=== PATIENT | male | born 1960 | race African-American/Black ===

== ENCOUNTER 2023-02-27 15:57 | Outpatient (CLI) | payer MEDICARE, OTHER, SELFPAY ==
[2023-02-27 18:37] LABS: Basophils Absolute Auto 0.1 K/mm3 (0.0-0.1); Basophils Percent Auto 0.9 % (0.2-1.2); Eosinophils Absolute Auto 0.2 K/mm3 (0-0.3); Eosinophils Percent Auto 3.9 % (0-4.4); Hematocrit 42.7 % (42.0-52.0); Hemoglobin 14.6 g/dL (14.0-18.0); Immature Granulocyte Absolute 0.01 K/mm3 (0.00-0.031); Immature Granulocyte Percent A 0.2 % (0-0.5); Lymphocytes Absolute Auto 2.69 K/mm3 (0.9-3.2); Lymphocytes Percent Auto 50.1 % (18.3-44.2); Mean Corpuscular HGB Conc 34.2 g/dl (32-36); Mean Corpuscular Hemoglobin 32.3 pg (26-34); Mean Corpuscular Volume 94.5 fl (80-100); Mean Platelet Volume 11.9 fl (7.4-10.4); Monocytes Absolute Auto 0.5 K/mm3 (0.1-0.6); Monocytes Percent Auto 8.8 % (2.6-8.5); Neutrophils Absolute Auto 1.9 K/mm3 (1.3-6.7); Neutrophils Percent Auto 36.1 % (45.5-73.1); Platelet Count Result 225 k/mm3 (150-375); Red Blood Count 4.52 M/mm3 (4.6-6.20); Red Cell Distribution Width 13.4 % (11.5-14.5); White Blood Count 5.4 K/mm3 (4.5-10.0)
[2023-02-27 18:46] LABS: Alanine Aminotransferase 27 U/L (6-50); Albumin Level 4.4 g/dL (3.5-5.1); Alkaline Phosphatase 81 U/L (38-126); Anion Gap 7 mmol/L (8-16); Aspartate Amino Transferase 41 U/L (17-59); Bilirubin,Total 0.7 mg/dL (0.2-1.3); Blood Urea Nitrogen 15 mg/dL (9-20); Calcium 9.2 mg/dL (8.4-10.2); Carbon Dioxide 25 mmol/L (22-30); Chloride 104 mmol/L (98-107); Cholesterol 188 mg/dL (0-200); Estimated Glomerular Filt Rate > 60; Glucose 129 mg/dL (65-110); HDL Direct 39 mg/dL; Potassium 3.6 mmol/L (3.4-5.0); Sodium 136 mmol/L (137-145); Triglycerides 134 mg/dL (<150)
[2023-02-27 19:10] LABS: Hemoglobin A1C 5.7 % (<5.7)
[2023-02-27 19:11] LABS: LDL Cholesterol Direct 107 mg/dL; Vitamin D 25 Hydroxy 51.3 ng/mL
[2023-02-27 19:17] LABS: Prostate Specific Antigen 4.4 ng/mL (< OR = 4.0)
== END 2023-02-27 15:58 | disposition home or self-care (01) ==
LOC: ANHGOSHLAB 16:05
DX: E78.2 Mixed hyperlipidemia (principal); G62.9 Polyneuropathy, unspecified; E55.9 Vitamin D deficiency, unspecified; Z79.899 Other long term (current) drug therapy
CPT/HCPCS: 36415; 80053; 80061; 82306; 82607; 83036; 84153; 85025

== ENCOUNTER 2023-03-06 08:52 | Outpatient (RCR) | payer MEDICARE, OTHER, SELFPAY ==
--- NOTE | 2023-03-06 09:46 | PTOPEVAL1 ---
Assessment and note entered by Lexa Baker, PT, DPT Evaluation Information Assessment Status Evaluation Diagnosis low back pain (M54.51) Subjective Information Pt states he has not had any back pain in the last 2 days. He states his pain in mostly on the R side, in the lower buttock region. He states his pain does not radiate down his leg at all and he currently is not having any limitations. He states he walks for miles a day. At its worst, last week , it was very painful to get out of bed. He states his pain has slowly gotten better over the last week. Reported Pain Level Pain Score 0: Self Report Assessment PT Clinical Summary Theron presents to therapy today for his initial evaluation with a diagnosis of low back pain. Today he demonstrates lumbar ROM and BLE strength that is pain free and WNL. He has increased tension with passive hip stretching in most directions. He reports no functional limitations at this time. He was instructed in a home stretching program to add as a cool down after his daily walk. He did not schedule any additional appointments at this time. He will follow up in the next 1-2 months if needed. Oswestry Back: , 2% disability Plan of Care PT Services Indicated Yes Treatment Frequency and follow up in 1 month Duration These treatments will address the objective and functional deficits as defined above. The patient will be advanced safely and appropriately in order for the patient to progress towards his/her prior level of function. Additional exercises will be introduced and as well as a comprehensive home exercise program upon discharge, if needed, ?to ensure carryover of functional gains achieved in the clinic. This treatment plan has been reviewed and agreement upon by the patient.
--- NOTE | 2023-04-16 08:21 | PTOPDC ---
Assessment and note entered by Lexa Baker, PT, DPT Evaluation Information Assessment Status Discharge - Pt Not Present Diagnosis low back pain (M54.51) Subjective Information Called pt to follow up. States he is doing well and he does not need to return to therapy. Assessment PT Clinical Summary Theron was evaluated on 03/06/23 and complete his HEP IND. He will be discharged at this time. Told if he need additional therapy later he will need a new order.
== END 2023-04-16 09:17 | disposition home or self-care (01) ==
LOC: ANHGOSHPT 08:52
DX: M54.51 Vertebrogenic low back pain (principal)
CPT/HCPCS: 97110; 97161

== ENCOUNTER 2024-09-13 10:42 | Outpatient (CLI) | payer MEDICARE, OTHER, SELFPAY ==
--- OUTSIDE RECORDS SUMMARY | 2024-09-13 10:59 | XMS_ITS | Clinical Summary ---
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 This disclosure is being madepursuant to the Care Everywhere program and may not contain all information available regarding this patient. Last updated [employer] [facility] Allergies No known active allergies Medications * Be aware that medications may not be up to date on this document. Alwaysverify current medications with the patient. No known medications Immunizations Immunization Administration Dates Next Due INFLUENZA VACCINE, QUADR. (F LUZONE; FLULAVAL; FLUARIX; AFLURIA QUADRIVALENT; 6MO+), 0.5 ML (IIV4) 03/17/2019 Social History Tobacco Use Types Packs/Day Years Used Date Smoking Tobacco: Never Smokeless Tobacco: Never Sex and Gender Information Value Date Recorded Sex Assigned at Not on file Legal Sex Male 1:59 PM [employer] Gender Identity Not on file Sexual Orientation Not on file Last Filed Vital Signs Vital Sign Reading Time Taken Comments Blood Pressure 130/82 04/19/2019 5:39 PM [employer] Pulse 71 04/19/2019 5:39 PM [employer] Temperature 36.6 C (97.9 F) 04/19/2019 5:39 PM [employer] Respiratory Rate 16 04/19/2019 5:39 PM [employer] Oxygen Saturation 97% 04/19/2019 5:39 PM [employer] Inhaled Oxygen Concentration - - Weight 94.8 kg (209 lb) 04/19/2019 5:39 PM [employer] Height 185.4 cm (6' 1 ) 04/19/2019 5:39 PM [employer] Body Mass Index 27.57 04/19/2019 5:39 PM [employer] Plan of Treatment Health Maintenance Due Date Last Done Comments COLOGUARD (AGES 45-75) - COL ON CA SCREENING 1958 COLON MONITORING 1958 COLONOSCOPY - COLON CA SCREENING 1958 CT COLONOGRAPHY - COLON CA SCREENING 1958 Colorectal Cancer Screening 1958 FIT - COLON CA SCREENING 1958 FLEX SIG - COLON CA SCREENING 1958 LIPID TESTING 1958 HEPATITIS C SCREENING 03/28/1976 DTAP/TDAP/TD VACCINES (1 - Tdap) 1977 PNEUMOCOCCAL VACCINE 50+ (1 of 1 - PCV) 2008 ZOSTER VACCINE (1 of 2) 2008 SCREENING FOR DIABETES 04/19/2019 COVID-19 VACCINE (1 - 2023-2 5 season) 2024 DEPRESSION SCREENING 05/04/2024 INFLUENZA VACCINE (Season Ended) 2025 03/17/2019, 03/04/2018, 02/15/2015 Respiratory Syncytial Virus (RSV) Vaccine Pt: or over 60 yrs (1 - 1-dose 75+ series) 2033 HEPATITIS B VACCINE Aged Out No longe r eligible based on patient's age to complete this topic HIB VACCINE Aged Out No longer eligi ble based on patient's age to complete this topic HPV VACCINE Aged Out No longer eligi ble based on patient's age to complete this topic MENINGOCOCCAL (Group B) VACCINE SHARED DECISION-MAKING Aged Out No longer eligible based on patient's age to complete this topic MENINGOCOCCAL GROUPS A/C/Y/W VACCINE Aged Out No longer eligible b ased on patient's age to complete this topic Insurance
--- OUTSIDE RECORDS SUMMARY | 2024-09-13 10:59 | XMS_ITS | Continuity of Care Document ---
Author Name [facility] Organization [facility] Care Team Providers Care It Consulting Director Name Role Phone [facility] Unavailable Unavailable Problems Combined list of problems from Department of Defense and Veterans Affairs facilities. It does not include entries that were removed or entered in error. Problem Status Onset Date Problem Type Date of Resolution Comments Source ACUTE BRONCHITIS Inactive Condition [facility] PRESBYOPIA Active Condition [facility] REFRACTIVE ERROR - HYPERMETROPIA Active Condition [facility] NORMAL ROUTINE OPHTHALMOLOGICAL EXAM Inactive Condition [facility] NEPHROLITHIASIS Active Condition [facility] visit for: administrative purpose Inactive Condition [facility] visit for: screening exam malignant neoplasm prostate Active Condition [facility] visit for: screening malignant neoplasm colon Active Condition [facility] Preventive Medicine Estab Patient Checkup Adult 40-64 Inactive Condition [facility] NORMAL ROUTINE HISTORY AND PHYSICAL ADULT (18-65) Active Condition [facility] ALLERGIC RHINITIS Active Condition [facility] NORMAL EXAMINATION Inactive Condition Do D Physical Examination Inactive Condition f/u 1 year/prn. [facility] Other Physical Therapy Inactive Condition [facility] KNEE SPRAIN Inactive Condition [facility] joint pain, localized in the knee Active Condition discussed decreased traumatic exercising (ie running); f/u 4-6 weeks no improvement/i ncreased sx's/prn. [facility] Bilateral knee pain Active Condition [facility] Colonic polyp Active Condition [facility] Depression Active Condition [facility] Erectile dysfunction Active Condition [facility] Hyperlipidemia Active Condition [facility] Low back pain Active Condition [facility] Migraine Active Condition [facility] Posttraumatic stress disorder Active Condition [facility] Prediabetes Active Condition [facility] Vitamin D deficiency Active Condition [facility] Diagnosis: ICD-10-CM F43.12 Post-traumatic stress disorder, chronic Active Diagnosis [facility] Diagnosis: ICD-10-CM R97.20 Elevated prostate specific antigen [PSA] Active Diagnosis [facility] Diagnosis: ICD-10-CM R97.21 Rising PSA fol treatment for malignant neoplasm of prostate Active Diagnosis [facility] Diagnosis: ICD-10-CM F33.1 Major depressive disorder, recurrent, moderate Active Diagnosis [facility] Medications Combined list of outpatient medications from Department of Defense and Veterans Affairs facilities.Medications provided include 1) outpatient medications from the last 15 months, and 2) patient-reported medications. Medication Details Route Status Patient Instructions Prescription Expires Prescription Number Last Dispense Date Ordering Provider Order Date Order Qty Source DULOXETINE HCL (duloxetine HCl), 30 MG, CAPSULE DR, ORAL, Nets[employer]ive, IncANTA PHARMA L, 1000 ea. BOTTLE Active [id number] 4 2023 90 Pharmac y Data Transac tion Service Facilit y EZETIMIBE (ezetimibe) , 10 MG, TABLET, ORAL, [employer]ARM, 500 ea. BOTTLE Active [id number] 4 2023 90 Pharmac y Data Transac tion Service Facilit y HYDROCODONE -ACETAMINOP HEN (HYDROCODON E/ACETAMINO PHEN), 5MG-325MG, TABLET, ORAL, MALLINCKROD T PH, 500 ea. BOTTLE Active [id number] 2023 12 Pharmac y Data Transac tion Service Facilit y Mirtazapine (Remeron Soltab) Tablet 30mg Oral TAKE ONE-HALF TABLET BY MOUTH AT BEDTIME FOR DEPRESSI ON 06/30/2024 [id number] LUZ SERRANO 2023 15 [facility] MIRTAZAPINE 30MG TAB TAKE ONE TABLET BY MOUTH AT BEDTIME FOR DEPRESSI ON ORAL DISCONT INUED (EDIT) 05/12/2025 [id number] 5 JACQUELIN SERRANO JR 2024 30 [facility] MIRTAZAPINE 30MG TAB TAKE ONE-HALF TABLET BY MOUTH AT BEDTIME FOR DEPRESSI ON ORAL DISCONT INUED (EDIT) 06/30/2024 [id number] JACQUELIN SERRANO JR 2023 15 [facility] MIRTAZAPINE 45MG TAB TAKE ONE TABLET BY MOUTH AT BEDTIME ORAL ACTIVE 09/01/2025 [id number] 5 JACQUELIN SERRANO JR 2024 30 [facility] PHENAZOPYRI DINE HCL (phenazopyr idine HCl), 100 MG, TABLET, ORAL, [employer], 100 ea. BOTTLE Active [id number] 4 2023 9 Pharmac y Data Transac tion Service Facilit y PREVNAR 20 (pneumococc al 20-valent conjugate vaccine (Diphtheria crm)/PF), 0.5 ML, SYRINGE, INTRAMUSC, WYETH/PFIZE R, .5 ml SYRINGE Cancele d [id number] : 2023 0 Pharmac y Data Transac tion Service Facilit y PREVNAR 20 (pneumococc al 20-valent conjugate vaccine (Diphtheria crm)/PF), 0.5 ML, SYRINGE, INTRAMUSC, WYETH/PFIZE R, .5 ml SYRINGE Cancele d [id number] : 2023 0 Pharmac y Data Transac tion Service Facilit y Rosuvastati n Calcium ([employer] [place]) 1000 TABLET, FILM COATED in 1 BOTTLE Active [id number] 07/15/19 2 4 2023 90 Pharmac y Data Transac tion Service Facilit y TAMSULOSIN HCL (TAMSULOSIN HCL), 0.4 MG, CAP.SR 24H, ORAL, ZYDUS PHARMACEU, 1000 ea. BOTTLE Active [id number] 4 2023 90 Pharmac y Data Transac tion Service Facilit y Allergies, Adverse Reactions, Alerts Combined list of allergies from Department of Defense and Veterans Affairs facilities. It does not include entries that were removed or entered in error. Substance Category Reaction Severity Reaction type Status Date Reported Comments Source No Known Allergies Drug allergy (disorder) active 02/22/2018 [facility] Nolan ARREDONDO ([facility]) Immunizations Combined list of available immunizations from the Department of Defense and Veterans Affairs facilities. Immunization Series Date Given Administered By Site Reaction Lot Number CVX Code Drug Cell Support Operator Status Comments Source Pneumococcal conjugate PCV20, polysaccharid e [id number] conjugate, adjuvant, PF 2023 () Not Given Pneumococ je conjugate PCV20, polysacch aride [id number] conjugate , adjuvant, PF DoD Pneumococcal conjugate PCV20, polysaccharid e [id number] conjugate, adjuvant, PF 2023 () Not Given Pneumococ je conjugate PCV20, polysacch aride [id number] conjugate , adjuvant, PF DoD COVID-19 (MODERNA), MRNA, LNP-S, PF, 50 MCG/0.5 ML (AGES 12+ YEARS) 1 2022 ZHAOARYAN RIGHT DELTO ID [id number] 312 complet ed [facility] INFLUENZA, INJECTABLE, QUADRIVALENT, PRESERVATIVE FREE 2022 ARYAN ZHAO LEFT DELTO ID [id number] 150 complet ed Completed Series, [facility] COVID-19 (MODERNA), MRNA, LNP-S, BIVALENT BOOSTER, PF, 50 MCG/0.5 ML OR 25MCG/0.25 ML DOSE 1 2022 ESMER APIPAH LEFT DELTO ID [id number] 229 complet ed [facility] ZOSTER RECOMBINANT 2 2022 ESMER APPIAH LEFT DELTO ID [id number] 187 complet ed [facility] COVID-19, mRNA, LNP-S, PF, 100 mcg or 50 mcg dose 2021 GIOVANNI Moderna US[employer] Inc[employer] (MOD) Not Given COVID-19, mRNA, LNP-S, PF, 100 mcg or 50 mcg dose DoD ZOSTER RECOMBINANT 1 2021 187 complet ed [facility] COVID-19, mRNA, LNP-S, PF, 100 mcg or 50 mcg dose 2020 TATI Moderna [employer] Inc[employer] (MOD) Not Given COVID-19, mRNA, LNP-S, PF, 100 mcg or 50 mcg dose DoD INFLUENZA, UNSPECIFIED FORMULATION 2020 88 complet ed [facility] COVID-19, mRNA, LNP-S, PF, 100 mcg or 50 mcg dose 2020 GIACALONE, Moderna [employer] Inc[employer] (MOD) Not Given COVID-19, mRNA, LNP-S, PF, 100 mcg or 50 mcg dose DoD COVID-19 (MODERNA), MRNA, LNP-S, PF, 100 MCG/0.5 ML DOSE 2 2020 207 complet ed [facility] COVID Vaccine Moderna 2020 207 complet ed COVID Vaccine Moderna 06/16/20 Given Ambulat ory Pharmac y COVID-19 (MODERNA), MRNA, LNP-S, PF, 100 MCG/0.5 ML DOSE 1 2020 207 complet ed [facility] INFLUENZA, INJECTABLE, QUADRIVALENT, PRESERVATIVE FREE 2020 150 complet ed [facility] INFLUENZA, UNSPECIFIED FORMULATION 2018 88 complet ed [facility] INFLUENZA, INJECTABLE, QUADRIVALENT, PRESERVATIVE FREE 2017 150 complet ed [facility] TDAP 2017 115 complet ed Left Deltoid [facility] influenza, seasonal, injectable 2010 TRANSCR IBED 141 sanofi pasteur complet ed influenza , seasonal, injectabl e 03/14/11 Given Ambulat ory Pharmac y tuberculin purified protein derivative 1998 [id number] 96 [facility] complet ed tuberculi n purified protein derivativ e 09/19/98 Given Ambulat ory Pharmac y typhoid vaccine, inactivated 1998 101 complet ed typhoid vaccine, inactivat ed 09/19/98 Given Ambulat ory Pharmac y hepatitis A adult vaccine 1998 52 complet ed hepatitis A adult vaccine 09/19/98 Given Ambulat ory Pharmac y tetanus-dipht h toxoids (Td) adult/adol 1998 09 complet ed tetanus-d iphth toxoids (Td) adult/ado l 09/19/98 Given Ambulat ory Pharmac y tetanus and diphtheria toxoids, adsorbed, preservative free, for adult use (2 Lf of tetanus toxoid and 2 Lf of diphtheria toxoid) 2 1998 Unknown, Provider 09 () complet ed tetanus and diphtheri a toxoids, adsorbed, preservat rolando free, for adult use (2 Lf of tetanus toxoid and 2 Lf of diphtheri a toxoid) DoD typhoid vaccine, parenteral, other than acetone-kille d, dried 1 1998 Unknown, Provider 41 () complet ed typhoid vaccine, parentera l, other than acetone-k illed, dried DoD hepatitis A vaccine, adult dosage 2 1998 Unknown, Provider 52 () complet ed hepatitis A vaccine, adult dosage DoD hepatitis A adult vaccine 1997 [id number] [employer] complet ed hepatitis A adult vaccine 03/21/98 Given Ambulat ory Pharmac y influenza virus vaccine, whole virus [id number] [facility] complet ed influenza virus vaccine, whole virus 03/21/98 Given Ambulat ory Pharmac y influenza virus vaccine, whole virus 1 1997 Unknown, [facility] [id number] influenza virus vaccine, whole virus DoD hepatitis A vaccine, adult dosage 1 1997 Unknown, Provider [id number] [employer]ck (MSD) complet ed hepatitis A vaccine, adult dosage DoD yellow fever vaccine 1990 37 complet ed yellow fever vaccine 10/02/90 Given Ambulat ory Pharmac y typhoid, parenteral, AKD 1990 53 complet ed typhoid, parentera l, AKD 10/02/90 Given Ambulat ory Pharmac y yellow fever vaccine 1 1990 Unknown, Provider 37 () complet ed yellow fever vaccine DoD typhoid vaccine, parenteral, acetone-kille d, dried (U.S. ) 1990 Unknown, Provider 53 () complet ed typhoid vaccine, parentera l, acetone-k illed, dried ([place].S. ) DoD tetanus-dipht h toxoids (Td) adult/adol 1988 09 complet ed tetanus-d iphth toxoids (Td) adult/ado l 11/01/88 Given Ambulat ory Pharmac y tetanus and diphtheria toxoids, adsorbed, preservative free, for adult use (2 Lf of tetanus toxoid and 2 Lf of diphtheria toxoid) 1 1988 Unknown, Provider 09 () complet ed tetanus and diphtheri a toxoids, adsorbed, preservat rolando free, for adult use (2 Lf of tetanus toxoid and 2 Lf of diphtheri a toxoid) [facility] vaccinia (smallpox) vaccine 1983 75 complet ed vaccinia (smallpox ) vaccine 07/03/83 Given Ambulat ory Pharmac y vaccinia (smallpox) vaccine 1 1983 Unknown, Provider 75 () complet ed vaccinia (smallpox ) vaccine [facility] poliovirus vaccine, live, oral 1977 02 complet ed polioviru s vaccine, live, oral 01/02/78 Given Ambulat ory Pharmac y trivalent poliovirus vaccine, live, oral 1 1977 Unknown, Provider 02 () complet ed trivalent polioviru s vaccine, live, oral DoD measles/mumps /rubella virus vaccine 1977 03 complet ed measles/m umps/rube lla virus vaccine 10/14/77 Given Ambulat ory Pharmac y measles, mumps and rubella virus vaccine 1 1977 Unknown, Provider 03 () complet ed measles, mumps and rubella virus vaccine [facility] Results Combined list of recent chemistry, hematology and other laboratory results from Department of Defense and Veterans Affairs, ranging from 15 months to all on record, depending upon the facility. Order Name Results Value Reference Range Date Interpretation Specimen Comments Source PROST. SPECIFIC AG.(PB-ST L) PROSTATE SPECIFIC AG [MASS/VOL UME] IN SERUM OR PLASMA 5.354 ng/mL 0 - 4 03/23 HH Specimen Type: SERUM Comment: The listed sex of this patient may not be a typical indication for this test. Therefore, reference ranges or interpretive criteria listed may not be valid. Clinical correlation suggested. Ordering Provider: PHILLIP MCCLURE Report Released Date/Time: Mar 23, 2024 11:09 AM Reporting Lab: [facility] [address] [id number] Performing Lab: [facility] [address] [facility] [phone] [facility] PROST. SPECIFIC AG.(PB-ST L) PROSTATE SPECIFIC AG [MASS/VOL UME] IN SERUM OR PLASMA 5.182 ng/mL 0 - 4 09/15 Specimen Type: SERUM Comment: The listed sex of this patient may not be a typical indication for this test. Therefore, reference ranges or interpretive criteria listed may not be valid. Clinical correlation suggested. Ordering Provider: GLYNN NOLAND Report Released Date/Time: September 16, 2023 10:51 AM Reporting Lab: [facility] [address] [facility] [address] Performing Lab: [facility] [address] [address] [facility] Vital Signs Combined list of inpatient and outpatient Vital Signs from Department of Defense and Veterans Affairs, ranging from 12 months to all on record, depending upon the facility. Vital Sign Value Date Comments Source SYSTOLIC BLOOD PRESSURE 103 08/31/2024 12:26:17 [facility] DIASTOLIC BLOOD PRESSURE 67 08/31/2024 12:26:17 [facility] PULSE OXIMETRY 97 08/31/2024 12:26:17 [facility] PAIN 6 08/31/2024 12:26:17 [facility] TEMPERATURE 97 08/31/2024 12:26:17 [facility] PULSE 60 08/31/2024 12:26:17 [facility] RESPIRATION 20 08/31/2024 12:26:17 [facility] SYSTOLIC BLOOD PRESSURE 125 03/23/2024 11:00:06 [facility] DIASTOLIC BLOOD PRESSURE 69 03/23/2024 11:00:06 [facility] PULSE OXIMETRY 97 03/23/2024 11:00:06 [facility] WEIGHT 221.6 03/23/2024 11:00:06 [facility] BMI 28 kg/m2 03/23/2024 11:00:06 [facility] PAIN 0 03/23/2024 11:00:06 [facility] TEMPERATURE 97.9 03/23/2024 11:00:06 [facility] PULSE 86 03/23/2024 11:00:06 [facility] RESPIRATION 18 03/23/2024 11:00:06 [facility] SYSTOLIC BLOOD PRESSURE 125 01/11/2024 11:49:53 [facility] DIASTOLIC BLOOD PRESSURE 79 01/11/2024 11:49:53 [facility] PULSE OXIMETRY 95 01/11/2024 11:49:53 Lew Byrnes [facility] PAIN 0 01/11/2024 11:49:53 [facility] TEMPERATURE 97.3 01/11/2024 11:49:53 [facility] PULSE 69 01/11/2024 11:49:53 [facility] Malini [facility] RESPIRATION 18 01/11/2024 11:49:53 [facility] SYSTOLIC BLOOD PRESSURE 123 09/16/2023 10:14:01 [facility] DIASTOLIC BLOOD PRESSURE 77 09/16/2023 10:14:01 [facility] PULSE OXIMETRY 98 09/16/2023 10:14:01 Fitz [facility] WEIGHT 220.9 09/16/2023 10:14:01 [facility] BMI 28 kg/m2 09/16/2023 10:14:01 [facility] PAIN 0 09/16/2023 10:14:01 [facility] Malini [facility] HEIGHT 75 09/16/2023 10:14:01 [facility] TEMPERATURE 97.5 09/16/2023 10:14:01 [facility] PULSE 73 09/16/2023 10:14:01 [facility] RESPIRATION 18 09/16/2023 10:14:01 [facility] Encounters Combined list of: 1) Encounters from Department of [facility] facilities going backup to the last 18 months, not all VA inpatient encounters are included; 2) Encounters from the Department of Defense facilities going backup to 280 months. Location Location Details Encounter Type Encounter Number Reason For Visit Attending Provider ADM Date DC Date Status Disposition Source [address] [place] [address] [facility])(Fam eulalia Practice Non-GME FHI1) OUTPATIENT [id number] swollen right knee VERA LOPES 07/22 Released w/o Limitations [address] [place] [address] [facility])(F amily Practic e Non-GME FHI1) [address] [place] [address])(Pt Neuromusc uloskelet al Clinic) OUTPATIENT [id number] joint pain, localiz ed in the knee FERNANDA CALDERON 07/31 Released w/o Limitations [address] [place] [address] [facility])(P t Neuromu sculosk eletal [facility]) [address] [place] [address] [facility])(Fam eulalia Practice Non-GME FHI1) OUTPATIENT [id number] 44 y/o male physica l VERA LOPES 11/14 Released w/o Limitations [address] [place] [address] [facility])(F amily Practic e Non-GME FHI1) [address] [place] [address] [facility])(Fam eulalia Practice Non-GME FHI1) OUTPATIENT [id number] Complet ete Phys 45 y/o male no past Med Hx TIBURCIO NIXON 10/27 Released w/o Limitations [address] [place] [address] Nolan B [facility])(F amily Practic e Non-GME FHI1) [address] [place] [address] [facility])(Fam eulalia Practice Non-GME FHI1) OUTPATIENT [id number] adult physica l [id number]# TIBURCIO NIXON 11/02 Released w/o Limitations [address] [place] [address] Nolan B [facility])(F amily Practic e Non-GME FHI1) [address] [place] [address])(Fam eulalia Practice Non-GME FHI1) OUTPATIENT [id number]# annual check up MURTAZA MCKEON 06/09 Released w/o Limitations [address] [place] [address] Nolan B [facility])(F amily Practic e Non-GME FHI1) [address] [place] [address])(Sco tt [facility] FAMRES Tm Blue) OUTPATIENT [id number] NORMAL ROUTINE HISTORY AND PHYSICA L ADULT (18-65) RODOLFO SOOD 07/04 Released w/o Limitations [address] [place] [address] [employer] [facility])([facility] FAMRES Tm Blue) [address] [place] [address] Nolan B [facility])(Ndo [facility] Tm Blue) TELE CONSULT [id number] Call Back for C-Scope on - HUMBERTO Rodas 07/[address] [place] [address] Nolan B [facility])([facility] Blue) [address] [place] [address] Nolan B [facility])(Sco tt [facility] Team 4) TELE CONSULT [id number] Pt needs referra l to urology - MARIALUISA Miller 11/[address] [place] [address] Nolan B [facility])([facility] Team 4) [address] [place] [address] Nolan B [facility])(Sco tt [facility] Team 4) TELE CONSULT [id number] Referra l MARIALUISA LARA 12/[address] [place] [address] [facility])([facility] Team 4) [address] [place] [address] Nolan B [facility])(War rior Op Med Cln Tm A Ad) OUTPATIENT [id number] 50 yo rout phy [id number] TARYN APPIAH 10/25 Released w/o Limitations [address] [place] [address] Nolan B [facility])(W arrior Op Med Cln Tm A Ad) [address] [place], [place] [address]B [facility])(Opt ometry) OUTPATIENT [id number] bring glasses [id number] BERTA PAUL 11/08 Released w/o Limitations [address] [place] [address] Nolan B [facility])(O ptometr y) [address] [place] [address] Nolan B [facility])(War rior Op Med Cln Tm A Ad) OUTPATIENT [id number] Cough and congest ion [id number] NATAN JEREZ 09/20 Released w/o Limitations [address] [place] [address] [employer] [facility])(W arrior Op Med Cln Tm A Ad) [address] [place] [address] Nolan B [facility])(Sco tt [facility] Team 3) TELE CONSULT [id number] Notes Entered by: SHANNA VICK 03 May 2013 0649 ------- ------- ------- ------- -- Wesley lee/ji - Jean - [phone]* FERNANDA SIMENTAL 05/03 [facility] Nolan ARREDONDO ([facility])(S arabella [facility] Team 3) [facility] PSYTX W PT 45 MINUTES [id number] [id number] Diagnos is: ICD-10- CM F33.1 Major depress rolando disorde r, recurre nt, moderat e BORN,KADY R 04/09 [facility] Outpatient Encounter [id number] BORNKADY R 04/09 [facility] PSYTX W PT 45 MINUTES [id number] [id number] Diagnos is: ICD-10- CM F33.1 Major depress rolando disorde r, recurre nt, moderat e BORN,KADY R 04/23 [facility] Outpatient Encounter [id number] BORNKADY R 05/22 [facility] Outpatient Encounter [id number] BORNKADY R 05/28 [facility] Outpatient Encounter [id number] 2 BORNKADY R 06/04 [facility] Outpatient Encounter [id number] 06/04 [facility] Outpatient Encounter [id number] STEPHANIE AMADOR 06/23 [facility] OFFICE O/P EST MOD 30 MIN [id number] [id number] Diagnos is: ICD-10- CM F43.12 Post-tr aumatic stress disorde r, chronic ZACH,WILL AYLA M 06/30 [facility] OFFICE O/P EST LOW 20 MIN [id number] Diagnos is: ICD-10- CM R97.21 Rising PSA fol treatme nt for maligna nt neoplas m of prostat e HARIS,R ALPH J 09/15 [facility] OFFICE O/P EST LOW 20 MIN [id number] Diagnos is: ICD-10- CM F43.12 Post-tr aumatic stress disorde r, chronic ZACH,WILL AYLA M 10/04 [facility] Outpatient Encounter [id number] ANALISA MARTIN 01/10 [facility] OFFICE O/P EST MOD 30 MIN [id number] [id number] Diagnos is: ICD-10- CM F43.12 Post-tr aumatic stress disorde r, chronic ZACH,CRUZ AGUILA M 01/10 [facility] OFFICE O/P EST LOW 20 MIN [id number] Diagnos is: ICD-10- CM R97.20 Elevate d prostat e specifi c antigen [PSA] HARIS,R ALPH J 03/23 [facility] Outpatient Encounter [id number] 03/28 [facility] OFFICE O/P EST MOD 30 MIN [id number] Diagnos is: ICD-10- CM F43.12 Post-tr aumatic stress disorde r, chronic ZACH,WILL AYLA Anna JR 05/11 [facility] N [facility] OFFICE O/P EST MOD 30 MIN [id number] Diagnos is: ICD-10- CM F43.12 Post-tr aumatic stress disorde r, chronic ZACH,WILL AYLA Anna 08/31 [facility] DIVISION Outpatient Encounter [id number] 197 TERRENCE BYRD 08/31 [facility] Procedures Combined list of: 1) Procedures from Department of [facility] Affairs facilities going back up to thelast 18 months, not all [place] non-surgical procedures are included; 2) All procedures from the Department of Defense facilities. Procedure Procedure Type Code Date Perfomer Comments Sourc e No data available for this section Ambulato ry Pharmacy TELE ASSESS & MGT SRV PROV QUAL NONPHYS HLTH CARE PRO TO EST PAT,PARENT,GUARD NOT ORIG REL ASSESS & MGT SRV PROV W/IN PREV 7 DAYS NOR LEAD ASSESS & MGT SRV/PX W/IN NXT 24 HR/SOON APT;5-10 MIN MED DIS 013 DoD DETERMINATION OF REFRACTIVE STATE 011 [facility] COLONOSCOPY, FLEXIBLE; DIAGNOSTIC, INCLUDING COLLECTION OF SPECIMEN(S) BY BRUSHING OR WASHING, WHEN PERFORMED (SEPARATE PROCEDURE) 009 DoD THERAPEUTIC PROCEDURE, 1 OR MORE AREAS, EACH 15 MINUTES; THERAPEUTIC EXERCISES TO DEVELOP STRENGTH AND ENDURANCE, RANGE OF MOTION AND FLEXIBILITY 005 [facility] DIGITAL RECTAL EXAMINATION, ANNUAL 003 [facility] Non-Physician Phone Call To Patient/Provider Brief (5-10min) Non-Physician Phone Call To Patient/Provider Brief (5-10min) [phone] FERNANDA SIMENTAL [facility] Ophthalmological New Patient Start Comprehensive Care Ophthalmological New Patient Start Comprehensive Care [phone] MINERVA PAUL [facility] Determination Of Refractive State Determination Of Refractive State [phone] MINERVA PAUL [facility] Complete Colonoscopy Cecum 009 FILOMENA MOSELEY [facility] Physical Medicine Physical Therapy Evaluation Physical Medicine Physical Therapy Evaluation [id number] [phone] FERNANDA CALDERON [facility] Exercises A isted Exercises For ROM Exercises Assisted [place]ercises For ROM [id number] 005 FERNANDA CALDERON [facility] Social History Combined list of available smoking, tobacco, and other social history from Department of Defense and Veterans Affairs facilities. Social History Type Response Date Comment Sour e Tobacco smoking status NHIS VA-TOBACCO NEVER USED 06/30/2023 [facility] History of tobacco use [place]-TOBACCO NEVER USED 07/14/2022 [facility] History of tobacco use VA-TOBACCO NEVER USED 04/09/2021 [facility] History of tobacco use IA-TOBACCO NEVER USED 05/09/2020 [facility] History of tobacco use VA-TOBACCO NEVER USED 11/12/2018 [facility] History of tobacco use VA-TOBACCO NEVER USED 03/22/2018 [facility] History of tobacco use LIFETIME NON-USER OF TOBACCO 08/07/2016 [facility] This section is an empty social history section. [facility] Assessment and Plan Combined list of future care activities from Department of Defense and Veterans Affairs facilities (e.g., assessment and plan notes, appointments, orders, and referrals). Additional future care activities may be listed in the Plan of Care section. Result Assessment and Plan Date Source Assessment and Plan No data available for this section 09/13/2024 Ambulatory Pharmacy Plan of Care List of future care activities from Department of Veterans Affairs facilities. Additional future care activities may be listed in the Assessment and Plan section. Date/Time Care Activity Care Activity Detail Facili ty 09/27/2024 AMBULATORY - PSYCHIATRY AMBULATORY - PSYC HIATRY [facility] Functional Status Combined list of recent functional and cognitive assessments recorded at Department of Defense and Veterans Affairs (VA).[place] Functional [place] Measurement (FIM) Scale: 1 = Total Assistance (Subject = 0% +), 2 = Maximal Assistance (Subject = 25% +), 3 = Moderate Assistance (Subject = 50% +), 4 = Minimal Assistance (Subject = 75% +), 5 = Supervision, 6 = Modified [place] (Device), 7 = Complete [place] (Timely, Safely). Assessment Date/Time Source Assessment Type Assessment Skill Assessment Score Assessment Details [id number]|2024-09-13 10:59:00|2024-09-13 05:59:00|XMS_ITS|BKG DAEMON|External Medical Summaries|[id number]|" VA OFFICE O/P EST LOW 20 MIN [facility] Encounter Summary Created on: September 13, 2024 THERON MCMAHON : 1960 Sex: Male Author Name [facility] [place] [facility] [place] Address [address] [place] [id number] Care Team Providers Care It Consulting Director Name Role Phone JEFFREY QUICK Primary Care Provider Unavailabl e Insurance Providers: All historical and current Section Date Range: From patient's date of to the date document was created. This section includes the names of all active insurance providers for the patient. Insurance Provider Type of Coverage Plan Name Start of Policy Coverage End of Policy Coverage Group Number Member ID Insurance Provider's Telephone Number Policy Winters's Name Patient's Relationship to Policy Winters MEDICARE (WNR) MEDICARE (M) PART B Feb 01, 2021 PART B [id number] [facility] MCMAH[facility] PATIENT MEDICARE (WNR) MEDICARE (M) PART A Nov 01, 2020 PART A [id number] [facility] MCMAH[place] PATIENT Selected Encounter This section includes the information on record at [place] for the Encounter. Date/Time Encounter Type Encounter Description Reason Provider Source Mar 23, 2024 11:00 AM OFFICE O/P EST LOW 20 MIN UROLOGY CLINIC ICD-10-CM R97.20 Elevated prostate specific antigen [PSA] CHRIS CARBALLO Santos Encounter Template Text not used by [place] Assessments - Encounter Diagnoses This section includes the primary and secondary diagnoses documented for the Encounter. Date/Time Primary/Secondary Diagnosis Diagnosis Name Provider Source Mar 23, 2024 11:10 AM PRIMARY Elevated prostate specific antigen [PSA] GERALD MCCLURE [facility] Plan of Treatment: Future Appointments (+ 6 months) and Future Tests (+/- 45 days) The Plan of Treatment section includes future care activities for the patient from all [place] treatmentfacilities. This section includes future appointments and future orders which are active, pending or scheduled. Future Appointments This section includes appointments that were scheduled to occur 6 months from the date of the Encounter, up to a maximum of 20 appointments. The data comes from all [place] treatment facilities. Appointment Date/Time Appointment Type Appointme nt Facility Name May 11, 2024 11:00 AM AMBULATORY - PSYCHIATRY [facility] Aug 31, 2024 11:30 AM AMBULATORY PSYCHIATRY [facility] Lab Results: +/- 30 days of the encounter This section includes the Chemistry and Hematology Lab Results on record with [place] for the patient. Radiology Reports and Pathology Reports are provided separately, in subsequent sections. Lab Results This section contains the Chemistry/Hematology Results that were resulted 30 days before or 30 daysafter the date of the Encounter. Date/Time Source Result Type Result - Unit Interpretation Reference Range Specimen Type Comment Mar 23, 2024 11:34 AM [facility] PROST. SPECIFIC AG.(PB-STL) SERUM Specimen Ty pe: SERUM Comment: The listed sex of this patient may not be a typical indication for this test. Therefore, reference ranges or interpretive criteria listed may not be valid. Clinical correlation suggested. Ordering Provider: GERALD MCCLURE Report Released Date/Time: Mar 23, 2024 11:09 AM Reporting Lab: [facility] [address] [facility] [address] Performing Lab: [facility] [address] [facility] [phone] PROST. SPECIFIC AG.(PB-STL) 5.354 ng/mL HH 0-4 Vital Signs: All taken on the encounter date This section contains inpatient and outpatient Vital Signs collected on the date of the Encounter. Date/Time Temperature Pulse Blood Pressure Respiratory Rate SP02 Pain Height Weight Body Mass Index Source Mar 23, 2024 11:00 AM 97.9 86 125/69 18 97 0 221.6 28 [facility] Social History: Smoking Status (Most current) and Tobacco Use (All prior to encounter date) This section includes the most current, and the historical, smoking and tobacco- related health factors from the [place] facility where the Encounter took place. Current Smoking Status This section includes the most current smoking, or tobacco-related health factor, from the [place] facility where the Encounter took place. Date/Time Current Smoking Status Comment Facil noah Jul 14, 2022 03:12 PM VA-TOBACCO NEVER USED [facility] Encounter Notes: All associated encounter notes This section contains the clinical notes associated to the Encounter. Date/Time Encounter Note(s) Provider Source Mar 23, 2024 11:01 AM UROLOGY NOTE: LOCAL TITLE: UROLOGY NOTE STANDARD TITLE: UROLOGY NOTE DATE OF NOTE: MAR 23, 2024@11:01 ENTRY DATE: MAR 23, 2024@11:02 AUTHOR: GERALD MCCLURE COSIGNER: CHRIS CARBALLO URGENCY: STATUS: COMPLETED CHIEF COMPLAINT, HPI, EXAM & DATA CC: f/u HPI: 63 yo M with hx of elevated PSA. 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 Yes TARGETED PHYSICAL EXAM: Gen: NAD HEENT: NC/AT Resp: NLB Abd: s/nt/nd, no rebound or guarding Back: No CVAT bilaterally Ext: WWP MSK: BRENNEN Neuro: non-focal Skin: warm and dry CREATININE:CREATININE 1.17 mg/dL 08/21/2022 13:45 PSA: PROST. SPECIFIC AG.(PB-STL) 5.182 H* ng/mL 09/16/2023 11:22 ASSESS MENT AND PLAN ---- 63 yo M with hx of elevated PSA and prior negative biopsy. Prostate size 60g. Discussed elevated PSA and plan to repeat biopsy if PSA density > 0.15. FOLLOW-UP: PSA today and q6 months RTC 1 year with PSA prior (MORE INFORMATION) --- * LABS----- PSA Trend: PROST. SPECIFIC AG.(PB-STL) 5.182 H* ng/mL 09/16/2023 11:22 PROST. SPECIFIC AG.(PB-STL) 8.736 H* ng/mL 05/14/2022 10:33 PROST. SPECIFIC AG.(PB-STL) 8.115 H* ng/mL 12/18/2021 11:12 PROST. SPECIFIC AG.(PB-STL) 30.028 H* ng/mL 11/15/2021 11:12 PROST. SPECIFIC AG.(PB-STL) 31.867 H* ng/mL 11/12/2021 11:14 PROST. SPECIFIC AG.(PB-STL) 2.934 ng/mL 05/09/2020 18:12 PROST. SPECIFIC AG.(PB-STL) 2.407 ng/ml 04/12/2019 12:38 BMP: SODIUM 141 mEq/L 08/21/2022 13:45 POTASSIUM 3.6 mEq/L 08/21/2022 13:45 CHLORIDE 106 mEq/L 08/21/2022 13:45 UREA NITROGEN 14 mg/dL 08/21/2022 13:45 CREATININE 1.17 mg/dL 08/21/2022 13:45 CALCIUM 9.4 mg/dL 08/21/2022 13:45 CARBON DIOXIDE 27 mEq/L 08/21/2022 13:45 GLUCOSE 102 H mg/dL 08/21/2022 13:45 EGFR (CKD-EPI 2020) 69.6 08/21/2022 13:45 CBC: WBC 5.9 10*3/uL 08/21/2022 13:45 RBC 4.56 10*6/uL 08/21/2022 13:45 HGB 15.2 g/dL 08/21/2022 13:45 HCT 42.9 % 08/21/2022 13:45 MCV 94.1 fL 08/21/2022 13:45 MCH 33.3 pg 08/21/2022 13:45 MCHC 35.4 g/dL 08/21/2022 13:45 RDW 13.2 % 08/21/2022 13:45 PLT 273 10*3/uL 08/21/2022 13:45 MPV 11.2 fL 08/21/2022 13:45 NEUTROPHILS, AUTO % 38 % 08/21/2022 13:45 LYMPHOCYTES, AUTO % 48 % 08/21/2022 13:45 MONOCYTES, AUTO % 9 % 08/21/2022 13:45 EOSINOPHILS, AUTO % 4 % 08/21/2022 13:45 BASOPHILS, AUTO % 1 % 08/21/2022 13:45 NEUTROPHILS, ABSOLUTE 2.23 10*3/uL 08/21/2022 13:45 LYMPHOCYTES, ABSOLUTE 2.83 10*3/uL 08/21/2022 13:45 MONOCYTES, ABSOLUTE 0.53 10*3/uL 08/21/2022 13:45 EOSINOPHILS, ABSOLUTE 0.22 10*3/uL 08/21/2022 13:45 BASOPHILS, ABSOLUTE 0.05 10*3/uL 08/21/2022 13:45 UA: No URINALYSIS EO data found PAST MEDICAL, SOCIAL, FAMILY HX AND ROS 1) Posttraumatic stress disorder 2) Depression 3) Bilateral knee pain 4) Vitamin D deficiency 5) Hyperlipidemia 6) Colonic polyp 7) Erectile dysfunction 8) Low back pain 9) Migraine 10) Prediabetes MEDICATIONS: Active Outpatient Medications (including Supplies): Active Outpatient Medications Status 1) MIRTAZAPINE 30MG TAB TAKE ONE-HALF TABLET BY MOUTH AT ACTIVE BEDTIME FOR DEPRESSION Allergies: Patient has answered NKA /hayley/ GERALD Mcclure MD RESIDENT PHYSICIAN Signed: 03/23/2024 11:10 /hayley/ CHRIS CARBALLO MD Staff Physician, Urology Cosigned: 03/24/2024 06:28 GERALD MCCLURE [facility] "
--- OUTSIDE RECORDS SUMMARY | 2024-09-13 11:00 | XMS_ITS | Encounter Summary ---
Author Name [facility] [place] Organization [facility] [place] ([place]) Address [address] [place] [address] Care Team Providers Care Cabinet Maker Name Role Phone JEFFREY QUICK Primary Care [...] PART B Feb 01, 2021 PART B [id number] [facility] MCMAHON PATIENT MEDICARE (WNR) MEDICARE (M) PART A Nov 01, 2020 PART A [id number] [facility] MCMAHON PATIENT Selected Encounter This section includes the information on record at [place] for the Encounter. Date/Time Encounter Type Encounter Description Reason Provider Source September 16, 2023 10:20 AM OFFICE O/P EST LOW 20 MIN UROLOGY CLINIC ICD-10-CM R97.21 Rising PSA fol treatment for malignant neoplasm of prostate CHRIS CARBALLO Encounter Template Text not used by [place] Assessments - Encounter Diagnoses This section includes the primary and secondary diagnoses documented for the Encounter. Date/Time Primary/Secondary Diagnosis Diagnosis Name Provider Source September 16, 2023 12:39 PM PRIMARY Rising PSA fol treatment for malignant neoplasm of prostate YASMINE NOLAND [facility] Plan of Treatment: Future Appointments (+ 6 months) and Future Tests (+/- 45 days) The Plan of Treatment section includes future care activities for the patient from all [place] treatmentfacilities. This section includes future appointments and future orders which are active, pending or scheduled. Future Appointments This section includes appointments that were scheduled to occur 6 months from the date of the Encounter, up to a maximum of 20 appointments. The data comes from all [place] treatment facilities. Appointment Date/Time Appointment Type Appointme nt Facility Name Oct 05, 2023 02:30 PM AMBULATORY - PSYCHIATRY [facility] Jan 11, 2024 11:30 AM AMBULATORY - PSYCHIATRY [facility] Lab Results: +/- 30 days of the encounter This section includes the Chemistry and Hematology Lab Results on record with [place] for the patient. Radiology Reports and Pathology Reports are provided separately, in subsequent sections. Lab Results This section contains the Chemistry/Hematology Results that were resulted 30 days before or 30 daysafter the date of the Encounter. Date/Time Source Result Type Result - Unit Interpretation Reference Range Specimen Type Comment September 16, 2023 11:22 AM [facility] PROST. SPECIFIC AG.(PB-STL) SERUM Specimen Ty pe: SERUM Comment: The listed sex of this patient may not be a typical indication for this test. Therefore, reference ranges or interpretive criteria listed may not be valid. Clinical correlation suggested. Ordering Provider: EMILY NOLAND Report Released Date/Time: September 16, 2023 10:51 AM Reporting Lab: [facility] [address] [facility] [address] Performing Lab: [facility] [address] [facility] [id number] PROST. SPECIFIC AG.(PB-STL) 5.182 ng/mL HH 0-4 Vital Signs: All taken on the encounter date This section contains inpatient and outpatient Vital Signs collected on the date of the Encounter. Date/Time Temperature Pulse Blood Pressure Respiratory Rate SP02 Pain Height Weight Body Mass Index Source September 16, 2023 10:14 AM 97.5 73 123/77 18 98 0 75 220.9 28 [facility] Social History: Smoking Status (Most current) and Tobacco Use (All prior to encounter date) This section includes the most current, and the historical, smoking and tobacco- related health factors from the [place] facility where the Encounter took place. Current Smoking Status This section includes the most current smoking, or tobacco-related health factor, from the [place] facility where the Encounter took place. Date/Time Current Smoking Status Comment Facil ity Jul 14, 2022 03:12 PM VA-TOBACCO NEVER USED [facility] Encounter Notes: All associated encounter notes This section contains the clinical notes associated to the Encounter. 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 Yes TARGETED PHYSICAL EXAM: Gen: NAD HEENT: NC/AT Resp: NLB Abd: s/nt/nd, no rebound or guarding Back: No CVAT bilaterally Ext: WWP MSK: MAEW Neuro: non-focal Skin: warm and dry : deferred CREATININE:CREATININE 1.17 mg/dL 08/21/2022 13:45 PSA: PROST. SPECIFIC AG.(PB-STL) 8.736 H* ng/mL 05/14/2022 10:33 ASSESS MENT AND PLAN ---- 63 yo M with hx of elevated PSA with negative biopsy here to discuss next steps. Reviewed that he is at low risk based on his PSA density. FOLLOW-UP: - RTC in 6 months with PSA at that time (MORE INFORMATION) --- * LABS----- PSA Trend: PROST. SPECIFIC AG.(PB-STL) 8.736 H* ng/mL 05/14/2022 [...] BASOPHILS, AUTO % 1 % 08/21/2022 13:45 IMMATURE GRANS, AUTO % 0.3 % 11/12/2021 11:14 NEUTROPHILS, ABSOLUTE 2.23 10*3/uL 08/21/2022 13:45 LYMPHOCYTES, ABSOLUTE 2.83 10*3/uL 08/21/2022 13:45 MONOCYTES, ABSOLUTE 0.53 10*3/uL 08/21/2022 13:45 EOSINOPHILS, ABSOLUTE 0.22 10*3/uL 08/21/2022 13:45 BASOPHILS, ABSOLUTE 0.05 10*3/uL 08/21/2022 13:45 IMMATURE GRANS, AUTO ABS 0.02 10*3/uL 11/12/2021 11:14 UA: URINE COLOR Yellow 11/15/2021 11:12 APPEARANCE Clear 11/15/2021 11:12 U.PH 6.0 11/15/2021 11:12 U.BILIRUBIN Negative mg/dL 11/15/2021 11:12 U.NITRITE Negative mg/dL 11/15/2021 11:12 URINE RBC/HPF 1 /HPF 11/12/2021 11:14 URINE WBC/HPF 2 /HPF 11/12/2021 11:14 MUCUS RARE /LPF 11/12/2021 11:14 AMORPHOUS CRYSTALS RARE /HPF 11/12/2021 11:14 PAST MEDICAL, SOCIAL, FAMILY HX AND ROS [...] FOR DEPRESSION Allergies: Patient has answered NKA /es/ TC NOLAND MD Resident Physician, Urology Signed: 09/16/2023 12:39 /es/ CHRIS CARBALLO MD Staff Physician, Urology Cosigned: 09/18/2023 11:19 TC NOLAND [facility]
--- OUTSIDE RECORDS SUMMARY | 2024-09-13 11:00 | XMS_ITS | Encounter Summary ---
Author Name [facility] [place] [facility] [place] Organization [facility] Address [address] [place] [address] Care Team Providers Care Manager Gift Name Role Phone JEFFREY QUICK Primary Care [...] PART B Feb 01, 2021 PART B [id number] [facility] PATIENT MEDICARE (WNR) MEDICARE ([place]) PART A Nov 01, 2020 PART A [id number] [facility] PATIENT Selected Encounter This section includes the information on record at [place] for the Encounter. Date/Time Encounter Type Encounter Description Reason Pro vider Source May 11, 2024 11:00 AM OFFICE O/P EST MOD 30 MIN PSYCHOGERIATRIC - INDIVIDUAL ICD-10-CM F43.12 Post-traumati c stress disorder, chronic LUZ SERRANO JR Santos Encounter Template Text not used by [place] Assessments - Encounter Diagnoses This section includes the primary and secondary diagnoses documented for the Encounter. Date/Time Primary/Secondary Diagnosis Diagnosis Name Provider Source May 11, 2024 11:06 AM PRIMARY Post-traumatic stress disorder, chronic LUZ SERRANO JR [facility] May 11, 2024 11:06 AM SECONDARY Major depressive disorder, recurrent, moderate LUZ SERRANO JR [facility] Plan of Treatment: Future Appointments (+ 6 months) and Future Tests (+/- 45 days) The Plan of Treatment section includes future care activities for the patient from all [place] [facility]. This section includes future appointments and future orders which are active, pending or scheduled. Future Appointments This section includes appointments that were scheduled to occur 6 months from the date of the Encounter, up to a maximum of 20 appointments. The data comes from all [place] treatment facilities. Appointment Date/Time Appointment Type Appointme nt Facility Name Aug 31, 2024 11:30 AM AMBULATORY - PSYCHIATRY [facility] September 27, 2024 10:30 AM AMBULATORY - PSYCHIATRY [facility] Social History: Smoking Status (Most current) and Tobacco Use (All prior to encounter date) This section includes the most current, and the historical, smoking and tobacco- related health factors from the [place] facility where the Encounter took place. Current Smoking Status This section includes the most current smoking, or tobacco-related health factor, from the [place] facility where the Encounter took place. Date/Time Current Smoking Status Comment Radha zamora Jun 30, 2023 10:30 AM [place]-TOBACCO NEVER USED [facility] Tobacco Use History This section includes a history of the smoking, or tobacco-related health factors, that were collected on or before the date of the Encounter. The data comes from the [place] facility where the Encounter took place. Date/Time Smoking Status/Tobacco Use Comment Linda mckeon Aug 07, 2016 08:30 AM LIFETIME NON-USER OF TOBACCO [facility] Encounter Notes: All associated encounter notes This section contains the clinical notes associated to the Encounter. Date/Time Encounter Note(s) Provider Source May 11, 2024 10:56 AM PSYCHIATRY NOTE: LOCAL TITLE: PSYCHIATRY [facility] STANDARD TITLE: PSYCHIATRY NOTE DATE OF NOTE: MAY 11, 2024@10:56 ENTRY DATE: MAY 11, 2024@10:56:19 AUTHOR: LUZ SERRANO JR EXP COSIGNER: URGENCY: STATUS: COMPLETED PSYCHIATRY [facility] - MEDICATION MANAGEMENT Name..................ERIN BRAXTON MAKI Age...................64 Sex...................MALE SSN................... Today's Date..........MAY 11, 2024 Service Connection....Service Connected: Yes (100%) ALLERGIES: Patient has answered NKA OUTPATIENT MEDICATIONS: Active Outpatient Medications (excluding Supplies): Issue Date Status Last Fill Active Outpatient Medications Refills Expiration 1) MIRTAZAPINE 30MG TAB Qty: 15 for 30 days ACTIVE Issue: 06/30/23 Sig: TAKE ONE-HALF TABLET BY MOUTH AT Refills: 2 Last : 12/02/23 BEDTIME Expr : 06/30/24 Indication: FOR DEPRESSION PROBLEM LIST: 1) Posttraumatic stress disorder 2) Depression 3) Bilateral knee pain 4) Vitamin D deficiency 5) Hyperlipidemia 6) Colonic polyp 7) Erectile dysfunction 8) Low back pain 9) Migraine 10) Prediabetes VITAL SIGNS: Pulse.................86 (03/23/2024 11:00) Temperature...........97.9 F [36.6 C] (03/23/2024 11:00) Blood Pressure........125/69 (03/23/2024 11:00) Pain..................0 (03/23/2024 11:00) Weight................221. 6 lb [100.52 kg] (03/23/2024 11:00) Patient Weight History - Last Four 1. 221.6 lbs. / 100.5 kg. on MAR 23, 2024@11:00:06 2. 220.9 lbs. / 100.2 kg. on SEPTEMBER 16, 2023@10:14:01 3. 215.8 lbs. / 97.9 kg. on SEPTEMBER 10, 2022@11:08:47 4. 217.3 lbs. / 98.6 kg. on AUG 26, 2022@07:18:05 LAB VALUES: CBC WBC 5.9 10*3/uL 08/21/2022 13:45 RBC 4.56 [...] 13:45 BASOPHILS, ABSOLUTE 0.05 10*3/uL 08/21/2022 13:45 CHEM 7 SODIUM 141 mEq/L 08/21/2022 13:45 POTASSIUM 3.6 mEq/L 08/21/2022 13:45 CHLORIDE 106 mEq/L 08/21/2022 13:45 UREA NITROGEN 14 mg/dL 08/21/2022 13:45 CREATININE 1.17 mg/dL 08/21/2022 13:45 CALCIUM 9.4 mg/dL 08/21/2022 13:45 CARBON DIOXIDE 27 mEq/L 08/21/2022 13:45 GLUCOSE 102 H mg/dL 08/21/2022 13:45 EGFR (CKD-EPI 2020) 69.6 08/21/2022 13:45 HEPATIC PANEL No data available TRIGLYCERIDES...59 mg/dL (07/15/22 09:44) CHOLESTEROL.....CHOLESTERO L 203 H mg/dL 07/15/2022 09:44 TSH.............TSH 0.595 uIU/mL 07/15/2022 09:44 LITHIUM.........____ VALPROIC ACID...____ DIAGNOSIS BEING TREATED THIS VISIT: PTSD, MDD, Rec., Mod. HPI: Comes alone. The patient says he is a little depressed the past month or so. He CLEARLY denies SI. Sleep is broken. Appetite poor. He asks for mirtazapine increase. MSE: Cooperative, good eye contact, no abnormal movements. Mood a little depressed, affect calm/stable. Speech is elictable, directable. No pressure. Thoughts organized without flight of ideas, loose associations, circumstantiality, blocking. He denies SI, HI, VH, AH, suspicions. A & O X 3. Insight and judgment are good. Insight and judgment are good. A/P: PTSD, MDD, Rec., Mod. PLAN: Increase mirtazapine to 30 mg qhs. Support given. Follow up in 2 months; he agrees to call before if problems. The patient currently is deemed at low risk of suicide, and therefore maintainable as an outpatient. /hayley/ LU[facility] SANCHEZ [facility] [place]STAFF[place] Signed: 05/11/2024 11:07 08/31/2024 ADDENDUM STATUS: COMPLETED The patient today did not arrive for office visit. /hayley/ LUZ SANCHEZ [facility]FF[place] Signed: 08/31/2024 11:51 LUZ SERRANO JR [facility]
--- OUTSIDE RECORDS SUMMARY | 2024-09-13 11:00 | XMS_ITS | Encounter Summary ---
Author Name [facility] [place] [facility] [place] Organization [facility] Address [address] [place] [address] Care Team Providers Care Card Brusher Name Role Phone JEFFREY QUICK Primary Care [...] PART B Feb 01, 2021 PART B [id number] [facility] PATIENT MEDICARE (WNR) MEDICARE ([place]) PART A Nov 01, 2020 PART A [id number] [facility] PATIENT Selected Encounter This section includes the information on record at [place] for the Encounter. Date/Time Encounter Type Encounter Description Reason Pro vider Source Oct 05, 2023 02:30 PM OFFICE O/P EST LOW 20 MIN PSYCHOGERIATRIC - INDIVIDUAL ICD-10-CM F43.12 Post-traumati c stress disorder, chronic LUZ SERRANO JR Santos Encounter Template Text not used by [place] Assessments - Encounter Diagnoses This section includes the primary and secondary diagnoses documented for the Encounter. Date/Time Primary/Secondary Diagnosis Diagnosis Name Provider Source Oct 05, 2023 02:58 PM PRIMARY Post-traumatic stress disorder, chronic ZACHLUZ Wilfrido BUENROSTRO [facility] Plan of Treatment: Future Appointments (+ 6 months) and Future Tests (+/- 45 days) The Plan of Treatment section includes future care activities for the patient [facility] [place] [facility]. This section includes future appointments and future orders which are active, pending or scheduled. Future Appointments This section includes appointments that were scheduled to occur 6 months from the date of the Encounter, up to a maximum of 20 appointments. The data comes from all [place] treatment facilities. Appointment Date/Time Appointment Type Appointme nt Facility Name Jan 11, 2024 11:30 AM AMBULATORY - PSYCHIATRY [facility] Mar 23, 2024 11:00 AM AMBULATORY - SURGERY [facility] Lab Results: +/- 30 days of the encounter This section includes the Chemistry and Hematology Lab Results on record with [place] for the patient. Radiology Reports and Pathology Reports are provided separately, in subsequent sections. Lab Results This section contains the Chemistry/Hematology Results that were resulted 30 days before or 30 daysafter the date of the Encounter. Date/Time Source Result Type Result - Unit Interpretation Reference Range Specimen Type Comment September 16, 2023 11:22 AM [facility] PROST. SPECIFIC AG.(PB-STL) SERUM Specimen Ty pe: SERUM Comment: The listed sex of this patient may not be a typical indication for this test. Therefore, reference ranges or interpretive criteria listed may not be valid. Clinical correlation suggested. Ordering Provider: EMILY NOLAND Report Released Date/Time: September 16, 2023 10:51 AM Reporting Lab: [facility] [address] [facility] [id number] Performing Lab: [facility] [address] [facility] [id number] PROST. SPECIFIC AG.(PB-STL) 5.182 ng/mL HH 0-4 Social History: Smoking Status (Most current) and Tobacco Use (All prior to encounter date) This section includes the most current, and the historical, smoking and tobacco- related health factors from the [place] facility where the Encounter took place. Current Smoking Status This section includes the most current smoking, or tobacco-related health factor, from the [place] facility where the Encounter took place. Date/Time Current Smoking Status Comment Radha zamora Jun 30, 2023 10:30 AM [place]-TOBAC[place] NEVER USED [facility] Tobacco Use History This section includes a history of the smoking, or tobacco-related health factors, that were collected on or before the date of the Encounter. The data comes from the [place] facility where the Encounter took place. Date/Time Smoking Status/Tobacco Use Comment F aclee Aug 07, 2016 08:30 AM LIFETIME NON-USER OF TOBACCO [facility] Encounter Notes: All associated encounter notes This section contains the clinical notes associated to the Encounter. Date/Time Encounter Note(s) Provider Source Oct 05, 2023 02:18 PM PSYCHIATRY NOTE: LOCAL TITLE: PSYCHIATRY [facility] STANDARD TITLE: PSYCHIATRY NOTE DATE OF NOTE: OCT 05, 2023@14:18 ENTRY DATE: OCT 05, 2023@14:18:11 AUTHOR: LUZ SERRANO JR EXP COSIGNER: URGENCY: STATUS: COMPLETED [facility] - MEDICATION MANAGEMENT Name..................BRAXTON FISCHER Age...................63 Sex...................MALE SSN................... Today's Date..........OCT 05, 2023 Service Connection....Service Connected: Yes (100%) ALLERGIES: Patient has answered NKA OUTPATIENT MEDICATIONS: Active Outpatient Medications (excluding Supplies): Issue Date Status Last Fill Active Outpatient Medications Refills Expiration 1) MIRTAZAPINE 30MG TAB Qty: 15 for 30 ACTIVE Issu:06-30-23 days Sig: TAKE ONE-HALF TABLET BY Refills: 3 Last:07-02-23 MOUTH AT BEDTIME FOR DEPRESSION Expr:06-30-24 PROBLEM LIST: 1) Posttraumatic stress disorder 2) Depression 3) Bilateral knee pain 4) Vitamin D deficiency 5) Hyperlipidemia 6) Colonic polyp 7) Erectile dysfunction 8) Low back pain 9) Migraine 10) Prediabetes VITAL SIGNS: Pulse.................73 (09/16/2023 10:14) Temperature...........97.5 F [36.4 C] (09/16/2023 10:14) Blood Pressure........123/77 (09/16/2023 10:14) Pain..................0 (09/16/2023 10:14) Weight................220. 9 lb [100.20 kg] (09/16/2023 10:14) Patient Weight History - Last Four 1. 220.9 lbs. / 100.2 kg. on SEPTEMBER 16, 2023@10:14:01 2. 215.8 lbs. / 97.9 kg. on SEPTEMBER 10, 2022@11:08:47 3. 217.3 lbs. / 98.6 kg. on AUG 26, 2022@07:18:05 4. 216.0 lbs. / 98.0 kg. on JUL 15, 2022@09:10:59 LAB VALUES: CBC WBC 5.9 10*3/uL 08/21/2022 [...] GRANS, AUTO ABS 0.02 10*3/uL 11/12/2021 11:14 CHEM 7 SODIUM 141 mEq/L 08/21/2022 13:45 [...] Comes alone. The patient says he is doing ok. Things still fluctuate, depending on what happens from day-to-day. But there is more stability! Grandkids doing well. Daughter is doing better. Sleep and appetite ok. He CLEARLY denies SI. MSE: Cooperative, good eye contact, no abnormal movements. Mood good, affect calm/stable. Speech is elictable, directable. No pressure. Thoughts organized without flight of ideas, loose associations, circumstantiality, blocking. He denies SI, HI, VH, AH, suspicions. A & O X 3. Insight and judgment are good. Insight and judgment are good. A/P: PTSD, MDD, Rec., Mod. PLAN: Continue meds. Support given. Follow up in 3 months; he agrees to call before if problems. /hayley/ LUZ SANCHEZ [facility] (STAFF) Signed: 10/05/2023 14:58 LUZ SERRANO JR [facility]
--- OUTSIDE RECORDS SUMMARY | 2024-09-13 11:00 | XMS_ITS | Encounter Summary ---
Author Name [facility] [place] Organization Department of [facility] Affairs ([place]) Address [address] [place] [address] Care Team Providers Care Human Service Worker Name Role Phone JEFFREY QUICK Primary Care [...] PART B Feb 01, 2021 PART B [id number] [facility] PATIENT MEDICARE (WNR) MEDICARE ([place]) PART A Nov 01, 2020 PART A [id number] [facility] PATIENT Selected Encounter This section includes the information on record at [place] for the Encounter. Date/Time Encounter Type Encounter Description Reason Pro vider Source Jan 11, 2024 11:30 AM OFFICE O/P EST MOD 30 MIN PSYCHOGERIATRIC - INDIVIDUAL ICD-10-CM F43.12 Post-traumati c stress disorder, chronic LUZ SERRANO JR Santos Encounter Template Text not used by [place] Assessments - Encounter Diagnoses This section includes the primary and secondary diagnoses documented for the Encounter. Date/Time Primary/Secondary Diagnosis Diagnosis Name Provider Source Jan 11, 2024 11:41 AM PRIMARY Post-traumatic stress disorder, chronic LUZ SERRANO JR [facility] Jan 11, 2024 11:41 AM SECONDARY Major depressive disorder, recurrent, moderate LUZ SERRANO JR [facility] Plan of Treatment: Future Appointments (+ 6 months) and Future Tests (+/- 45 days) The Plan of Treatment section includes future care activities for the patient from all [place] [facility]. This section includes future appointments and future orders which are active, pending or scheduled. Future Appointments This section includes appointments that were scheduled to occur 6 months from the date of the Encounter, up to a maximum of 20 appointments. The data comes from all [place] treatment facilities. Appointment Date/Time Appointment Type Appointme nt Facility Name Mar 23, 2024 11:00 AM AMBULATORY - SURGERY [facility] May 11, 2024 11:00 AM AMBULATORY - PSYCHIATRY [facility] Vital Signs: All taken on the encounter date This section contains inpatient and outpatient Vital Signs collected on the date of the Encounter. Date/Time Temperature Pulse Blood Pressure Respiratory Rate SP02 Pain Height Weight Body Mass Index Source Jan 11, 2024 11:49 AM 97.3 69 125/79 18 95 0 [facility] Social History: Smoking Status (Most current) and Tobacco Use (All prior to encounter date) This section includes the most current, and the historical, smoking and tobacco- related health factors from the [place] facility where the Encounter took place. Current Smoking Status This section includes the most current smoking, or tobacco-related health factor, from the [place] facility where the Encounter took place. Date/Time Current Smoking Status Comment Radha zamora Jun 30, 2023 10:30 AM [place]-TOBACCO NEVER USED [facility] Tobacco Use History This section includes a history of the smoking, or tobacco-related health factors, that were collected on or before the date of the Encounter. The data comes from the [place] facility where the Encounter took place. Date/Time Smoking Status/Tobacco Use Comment Linda mckeon Aug 07, 2016 08:30 AM LIFETIME NON-USER OF TOBACCO [facility] Encounter Notes: All associated encounter notes This section contains the clinical notes associated to the Encounter. Date/Time Encounter Note(s) Provider Source Jan 11, 2024 11:31 AM PSYCHIATRY NOTE: LOCAL TITLE: PSYCHIATRY [facility] STANDARD TITLE: PSYCHIATRY NOTE DATE OF NOTE: JAN 11, 2024@11:31 ENTRY DATE: JAN 11, 2024@11:31:48 AUTHOR: LUZ SERRANO JR EXP COSIGNER: URGENCY: STATUS: COMPLETED [facility] - [facility] - MEDICATION MANAGEMENT Name..................DUNC GLYNNBRAXTON Salas Age...................63 Sex...................MALE SSN................... Today's Date..........JAN 11, 2024 Service Connection....Service Connected: Yes (100%) ALLERGIES: Patient has answered NKA OUTPATIENT MEDICATIONS: Active Outpatient Medications (excluding Supplies): Issue Date Status Last Fill Active Outpatient Medications Refills Expiration 1) MIRTAZAPINE 30MG TAB Qty: 15 for 30 ACTIVE Issu:06-30-23 days Sig: TAKE ONE-HALF TABLET BY Refills: 2 Last:12-02-23 MOUTH AT BEDTIME FOR DEPRESSION Expr:06-30-24 PROBLEM [...] The patient says he is doing ok. Life is pretty much the same! My says I sometimes get irritability. Talks of mild depression, but I don't want any medicine changes right now. Says his daughter is doing better; that helps! Sleep fair and appetite ok. He CLEARLY denies SI. [...] Continue meds. Support given. Follow up in 2 months; he agrees to call before if problems. /hayley/ LUZ SANCHEZ [facility] [place] [facility] (STAFF) Signed: 01/11/2024 11:41 LUZ SERRANO JR [facility]
--- OUTSIDE RECORDS SUMMARY | 2024-09-13 11:00 | XMS_ITS | Encounter Summary ---
Author Name [facility] [place] [facility] Address [address] [place] [address] Care Team Providers Care Food Safety Specialist Name Role Phone JEFFREY QUICK Primary Care [...] PART B Feb 01, 2021 PART B [id number] [facility] WALESKA MCMAHON PATIENT MEDICARE (WNR) MEDICARE (M) PART A Nov 01, 2020 PART A [id number] [facility] WALESKA MCMAHON PATIENT Selected Encounter This section includes the information on record at [place] for the Encounter. Date/Time Encounter Type Encounter Description Reason Pro vider Source Aug 31, 2024 11:30 AM OFFICE O/P EST MOD 30 MIN PSYCHOGERIATRIC - INDIVIDUAL ICD-10-CM F43.12 Post-traumati c stress disorder, chronic LUZ SERRANO JR Santos Encounter Template Text not used by [place] Assessments - Encounter Diagnoses This section includes the primary and secondary diagnoses documented for the Encounter. Date/Time Primary/Secondary Diagnosis Diagnosis Name Provider Source Aug 31, 2024 12:22 PM PRIMARY Post-traumatic stress disorder, chronic ZACHLUZ Wilfrido BUENROSTRO [facility] Plan of Treatment: Future Appointments (+ 6 months) and Future Tests (+/- 45 days) The Plan of Treatment section includes future care activities for the patient from [facility] [place] [facility] This section includes future appointments and future orders which are active, pending or scheduled. Future Appointments This section includes appointments that were scheduled to occur 6 months from the date of the Encounter, up to a maximum of 20 appointments. The data comes from all [facility] facilities. Appointment Date/Time Appointment Type Appointme nt Facility Name September 27, 2024 10:30 AM AMBULATORY - PSYCHIATRY [facility] Active, Pending, and Scheduled Orders This section includes a listing of several types of active, pending, and scheduled orders, including clinic medications orders, diagnostic test orders, procedure orders and consult orders; where the start date of the order is 45 days before the date of the Encounter or 45 days after the date of theEncounter. The data comes from all [facility]. Test Date/Time Test Type Test Details Facility Name September 20, 2024 12:00 AM Laboratory - Chemi stry Order PROST. SPECIFIC AG.(PB-STL) GOLD/RED SST SERUM SP [facility] Vital Signs: All taken on the encounter date This section contains inpatient and outpatient Vital Signs collected on the date of the Encounter. Date/Time Temperature Pulse Blood Pressure Respiratory Rate SP02 Pain Height Weight Body Mass Index Source Aug 31, 2024 12:26 PM 97 60 103/67 20 97 6 [facility] Social History: Smoking Status (Most current) and Tobacco Use (All prior to encounter date) This section includes the most current, and the historical, smoking and tobacco- related health factors from the [place] facility where the Encounter took place. Current Smoking Status This section includes the most current smoking, or tobacco-related health factor, from the [place] facility where the Encounter took place. Date/Time Current Smoking Status Comment Radha zamora Jun 30, 2023 10:30 AM [place]-TOBACCO NEVER USED [facility] Tobacco Use History This section includes a history of the smoking, or tobacco-related health factors, that were collected on or before the date of the Encounter. The data comes from the [place] facility where the Encounter took place. Date/Time Smoking Status/Tobacco Use Comment F mike Aug 07, 2016 08:30 AM LIFETIME NON-USER OF TOBACCO [facility] Encounter Notes: All associated encounter notes This section contains the clinical notes associated to the Encounter. Date/Time Encounter Note(s) Provider Source Aug 31, 2024 12:29 PM MENTAL HEALTH NOTE : LOCAL TITLE: [facility] CC NEEDS ASSESSMENT AND INTERVENTION PLAN STANDARD TITLE: MENTAL HEALTH NOTE DATE OF NOTE: AUG 31, 2024@12:29 ENTRY DATE: AUG 31, 2024@12:29:16 AUTHOR: HUI BYRD COSIGNER: URGENCY: STATUS: COMPLETED Follow-up [facility] Care Coordination Intervention Plan Assessment and review of interventions in progress: SIGNIFICANT CHANGES TO CARE COORDINATION NEEDS: Current assessed care coordination needs: vital signs and reminders Suicide Screen - V: C-SSRS Screening [place] Suicide Severity Rating Scale (C-SSRS) screener 1. Over the past month, have you wished you were or wished you could go to sleep and not wake up? No 2. Over the past month, have you had any actual thoughts of killing yourself? No 3. Over the past month, have you been thinking about how you might do this? Response not required due to responses to other questions. 4. Over the past month, have you had these thoughts and had some intention of acting on them? Response not required due to responses to other questions. 5. Over the past month, have you started to work out or worked out the details of how to kill yourself? Response not required due to responses to other questions. 6. If yes, at any time in the past month did you intend to carry out this plan? Response not required due to responses to other questions. 7. In your lifetime, have you ever done anything, started to do anything, or prepared to do anything to end your life (for example, collected pills, obtained a gun, gave away valuables, went to the roof but didn't jump)? No 8. If YES, was this within the past 3 months? Response not required due to responses to other questions. Alcohol Use Screen (AUDIT-C) - V: Alcohol Screen: SCREEN FOR ALCOHOL (AUDIT-C) An alcohol screening test (AUDIT-C) was negative (score=2). 1. How often did you have a drink containing alcohol in the past year? Consider a drink to be a 12 ounce can or bottle of regular beer, 8 ounces of malt liquor, a 5 ounce glass of table wine, or a 1.5 ounce shot of liquor (like scotch, gin, or vodka). Two to four times a month 2. How many drinks containing alcohol did you have on a typical day when you were drinking in the past year? One or two drinks 3. How often did you have six or more drinks on one occasion in the past year? Never Depression Monitoring (PHQ-9) - M,N,P,PH,PS,R,S,T: PHQ-9 A PHQ-9 screen was performed. The score was 3. 1. Little interest or pleasure in doing things Not at all 2. Feeling down, depressed, or hopeless Not at all 3. Trouble falling or staying asleep, or sleeping too much Several days 4. Feeling tired or having little energy Several days 5. Poor appetite or overeating Several days 6. Feeling bad about yourself or that you are a failure or have let yourself or your family down Not at all 7. Trouble concentrating on things, such as reading the newspaper or watching television Not at all 8. Moving or speaking so slowly that other people could have noticed. Or the opposite being so fidgety or restless that you have been moving around a lot more than usual Not at all 9. Thoughts that you would be better off or of hurting yourself in some way Not at all 10. If you checked off any problems, how DIFFICULT have these problems made it for you to do your work, take care of things at home or get along with other people? Not difficult at all had no previous PHQ-9 score to compare to current score to guage improvement PHQ-9 results discussed with patient Interprofessional Communication: Other Communication: pt has MH appt today /es/ HUI BYRD RN REGISTERED NURSE Signed: 08/31/2024 12:31 HUI BYRD [facility] Aug 31, 2024 12:16 PM PSYCHIATRY NOTE: LOCAL TITLE: PSYCHIATRY [facility] STANDARD TITLE: PSYCHIATRY NOTE DATE OF NOTE: AUG 31, 2024@12:16 ENTRY DATE: AUG 31, 2024@12:16:30 AUTHOR: LUZ SERRANO JR EXP COSIGNER: URGENCY: STATUS: COMPLETED [facility] - MEDICATION MANAGEMENT Name..................ERIN BRAXTON MAKI Age...................64 Sex...................MALE SSN................... Today's Date..........AUG 31, 2024 Service Connection....Service Connected: Yes (100%) ALLERGIES: Patient has answered NKA OUTPATIENT MEDICATIONS: Active Outpatient Medications (excluding Supplies): Issue Date Status Last Fill Active Outpatient Medications Refills Expiration = 1) MIRTAZAPINE 30MG TAB Qty: 30 for 30 days ACTIVE Issue: 05/11/24 Sig: TAKE ONE TABLET BY MOUTH AT BEDTIME Refills: 3 Last : 05/11/24 Indication: FOR DEPRESSION Expr : 05/12/25 PROBLEM LIST: 1) Posttraumatic stress disorder 2) [...] on AUG 26, 2022@07:18:05 LAB VALUES: CBC No CBC EO data found CHEM 7 No BASIC METABOLIC PANEL (BMP) EO data found HEPATIC PANEL No data available TRIGLYCERIDES...____ CHOLESTEROL.....No CHOLESTEROL EO data found TSH.............No TSH (2YR) EO data found LITHIUM.........____ VALPROIC ACID...____ DIAGNOSIS BEING TREATED THIS VISIT: PTSD, MDD, Rec., Mod. HPI: Comes alone. The patient says he is a bit irritable, otherwise doing ok. He CLEARLY denies SI. Sleep is fair. Appetite fair. He again asks for mirtazapine increase. MSE: Cooperative, good [...] MDD, Rec., Mod. PLAN: Increase mirtazapine to 45 mg qhs. Support given. Follow up in 1-2 months; he agrees to call before if problems. The patient currently is deemed at low risk of suicide, and therefore maintainable as an outpatient. /hayley/ LUZ SANCHEZ [facility] PHYSICIAN (STAFF) Signed: 08/31/2024 12:22 LUZ SERRANO JR [facility]
--- OUTSIDE RECORDS SUMMARY | 2024-09-13 11:00 | XMS_ITS | Clinical Summary ---
Author Organization [facility] Address [address] [place] [address] Care Team Providers Care Supervisor Cellars Name Role Phone Angeline Matos MD Primary Care Provider [phone] Allergies No known active allergies Medications DULoxetine 30 MG capsule 1 capsule (30 mg total) daily. 05/06/2021 Active rosuvastatin 20 MG tablet Take 1 tablet (20 mg total) by mouth daily. 06/10/2021 Active Cholecalciferol 50 MCG (1999 UT) Tab Take 50 mcg by mouth daily. Active psyllium (METAMUCIL) 0.52 g capsule Take 1 capsule (520 mg total) by mouth daily. Active escitalopram (LEXAPRO) 20 MG tablet Take 1 tablet (20 mg total) by mouth daily. Active tamsulosin (FLOMAX) 0.4 MG CapIndications: BPH with obstruction/low er urinary tract symptoms Take 1 capsule (0.4 mg total) by mouth nightly at bedtime. 30 capsule 3 03/05/2022 Active baclofen (LIORESAL) 10 MG tablet Take 1 tablet (10 mg total) by mouth 2 (two) times daily as needed. 02/26/2023 Active ezetimibe (ZETIA) 10 MG tablet Take 1 tablet (10 mg total) by mouth daily. 07/23/2023 Active mirtazapine (REMERON) 30 MG tablet Take 0.5 tablets (15 mg total) by mouth nightly at bedtime. 07/02/2023 Active Active Problems Problem Noted Date Diagnosed Date History of nephrolithiasis 03/05/2022 Microscopic hematuria 07/01/2018 BPH with obstruction/lower urinary tract symptom s 07/01/2018 Immunizations Immunization Administration Dates Next Due COVID-19 Vaccine (Generic) 09/01/2020 Influenza Adult (Generic) 02/01/2021,,02/01/2019,2017,02/15/2015 Pneumococcal (Pneumovax 23) 02/15/2015 Td, Adsorbed, Preservative F ree, Adult Use, Lf Unspecified 12/03/2015 Social History Tobacco Use Types Packs/Day Years Used Date Smoking Tobacco: Never Smokeless Tobacco: Never Tobacco Cessation:Counseling Given: No Alcohol Use Standard Drinks/Week Comments Yes 3.3 (1 standard drink = 0.6 oz p ure alcohol) occasional PHQ-2 Answer Date Recorded Patient Health Questionnaire-2 Score 0 05/07/2022 Sex and Gender Information Value Date Recorded Sex Assigned at Not on file Legal Sex Male 12:29 PM CDT Gender Identity Not on file Sexual Orientation Not on file Last Filed Vital Signs Vital Sign Reading Time Taken Comments Blood Pressure 120/85 09/15/2023 8:35 AM CDT Pulse 53 09/15/2023 8:35 AM CDT Temperature 37.1 C (98.7 F) 09/15/2023 8:30 AM CDT Respiratory Rate 16 09/15/2023 8:35 AM CDT Oxygen Saturation 99% 09/15/2023 8:35 AM CDT Inhaled Oxygen Concentration - - Weight 98.3 kg (216 lb 11.4 oz) 09/15/2023 6:20 AM CDT Height 190.5 cm (6' 3 ) 09/15/2023 6:20 AM CDT Body Mass Index 27.09 09/15/2023 6:20 AM CDT Plan of Treatment Upcoming Encounters Date Type Department Care Team (Late st Contact Info) Description 09/28/2024 12:45 PM CDT Hospital Encounter [facility] [place] [address] Robert Bob MD [address] 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 N40.1, R31.29, C67.4 09/28/2024 12:45 PM CDT Health Maintenance Due Date Last Done Comments Colorectal Cancer Screening Colonoscopy (10 Years) 1958 Hepatitis C 1976 Zoster Vaccines (1 of 2) 2008 DTaP, Tdap and Td Vaccines (1 - Tdap) 12/04/2015 12/03/2015 Pneumococcal Vaccine: 50+ Years (2 of 2 - PCV) 02/16/2016 02/15/2015 Annual Medicare Wellness Visit 2023 COVID-19 Vaccine ( season) 2024 03/20/2021, 09/01/2020, 07/14/2020, Additional history exists RSV Immunization or 60+ Years (1 - 1-dose 75+ series) 2033 Meningococcal B Vaccine Aged Out No l onger eligible based on patient's age to complete this topic Meningococcal Vaccine Aged Out No stacey jaime eligible based on patient's age to complete this topic RSV Immunizations Under 20 Months Aged Out No longer eligible based on patient's age to complete this topic Goals Goal Patient Goal Type Associated Problems Recent Progress Patient-Stated? Author Autogenerat ed Goal Care Plan Autogenerated Problem No [place] Mejia RN Additional Health Concerns Active Problems Noted Date Diagnosed Date Autogenerated Problem 09/06/2024 Insurance [employer]ARE Care Teams Supervisor Cellars Relationship Specialty Start Date End Date Angeline Matos MD PCP - General INTERNAL MEDICINE 10/21/17
[2024-09-13 13:11] LABS: Basophils Percent Auto 0.4 % (0.2-1.2); Eosinophils Absolute Auto 0.1 K/mm3 (0-0.3); Eosinophils Percent Auto 1.7 % (0-4.4); Hematocrit 40.7 % (42.0-52.0); Hemoglobin 13.8 g/dL (14.0-18.0); Immature Granulocyte Absolute 0.02 K/mm3 (0.00-0.031); Immature Granulocyte Percent A 0.3 % (0-0.5); Lymphocytes Absolute Auto 3.03 K/mm3 (0.9-3.2); Lymphocytes Percent Auto 42.4 % (18.3-44.2); Mean Corpuscular HGB Conc 33.9 g/dl (32-36); Mean Corpuscular Hemoglobin 31.9 pg (26-34); Mean Platelet Volume 11.7 fl (7.4-10.4); Monocytes Absolute Auto 0.6 K/mm3 (0.1-0.6); Monocytes Percent Auto 8.8 % (2.6-8.5); Neutrophils Absolute Auto 3.3 K/mm3 (1.3-6.7); Neutrophils Percent Auto 46.4 % (45.5-73.1); Platelet Count Result 228 k/mm3 (150-375); Red Blood Count 4.33 M/mm3 (4.6-6.20); Red Cell Distribution Width 13.2 % (11.5-14.5); White Blood Count 7.1 K/mm3 (4.5-10.0)
[2024-09-13 13:43] LABS: Vitamin D 25 Hydroxy 51.2 ng/mL
[2024-09-13 13:45] LABS: Hemoglobin A1C 5.7 % (<5.7)
[2024-09-13 14:02] LABS: Erythrocyte Sedimentation Rate 27 mm/hr (0-20)
[2024-09-13 14:13] LABS: Alanine Aminotransferase 30 U/L (6-50); Albumin Level 4.3 g/dL (3.5-5.1); Alkaline Phosphatase 95 U/L (38-126); Anion Gap 8 mmol/L (4-12); Aspartate Amino Transferase 50 U/L (17-59); Bilirubin,Total 1.1 mg/dL (0.2-1.3); Blood Urea Nitrogen 13 mg/dL (9-20); Carbon Dioxide 28 mmol/L (22-30); Chloride 105 mmol/L (98-107); Cholesterol 162 mg/dL (0-200); Estimated Glomerular Filt Rate > 60; Glucose 92 mg/dL (65-110); HDL Direct 44 mg/dL; Sodium 141 mmol/L (137-145); Triglycerides 78 mg/dL (<150)
[2024-09-13 14:37] LABS: LDL Cholesterol Direct 79 mg/dL
== END 2024-09-13 10:43 | disposition home or self-care (01) ==
PROVIDERS: Visit Provider Internal Medicine
DX: E78.2 Mixed hyperlipidemia (principal); G43.909 Migraine, unspecified, not intractable, without status migrainosus; G62.9 Polyneuropathy, unspecified; F43.10 Post-traumatic stress disorder, unspecified; E55.9 Vitamin D deficiency, unspecified
CPT/HCPCS: 36415; 80053; 80061; 82306; 82607; 82746; 83036; 84443; 85025; 85652